=== PATIENT | female | born 1985 | race Caucasian/White ===

== ENCOUNTER 2018-09-17 10:28 | Day surgery (SDC) | payer OTHER ==
[2018-09-16 13:50] VITALS: BMI 22.7
[2018-09-17] MEDS ORDERED: Ondansetron PF 4 MG/2 ML Vial ONE (11:22)
[2018-09-17] MEDS ORDERED: Lidocaine 1% PF 5 ML VIAL ONE (11:22)
[2018-09-17] MEDS ORDERED: PROPOFOL 200 MG/20 ML VIAL ONE (11:22)
[2018-09-17] MEDS ORDERED: Fentanyl 100 MCG/2 ML VIAL ONE (12:34)
--- NOTE | 2018-09-18 00:05 | OP ---
DATE OF PROCEDURE: 09/17/2018 PROCEDURE PERFORMED: Esophagogastroduodenoscopy with biopsy. PREOPERATIVE DIAGNOSIS: A 33-year-old with chronic and persistent acid reflux. She has acid reflux everyday. She has taken Nexium 3 times a day. Surprisingly, she has no risk factors for acid reflux. She is on Lovaza. She is physically very fit and thin, she does not smoke and does not drink alcohol. She also eats very healthy. The patient complains of persistent heartburn over the last couple of years. No EGD. POSTOPERATIVE DIAGNOSES: 1. Normal vocal cords. No vocal cord inflammation or erythema seen. 2. Normal esophageal mucosa throughout the esophagus. No esophagitis or any erosions. 3. Normal stomach including fundus and cardia. No hiatus hernia seen. DESCRIPTION OF PROCEDURE: The patient was placed on her left lateral position and was given sedation by Anesthesia Department. A [employer] video gastroscope under direct vision passed down the oropharynx, past the GE junction into the stomach and subsequently into the descending duodenum. Although the patient complained of severe and persistent acid reflux, endoscopy in the vocal cords appeared very healthy. There was no inflammation or erythema seen. The esophageal mucosa appeared normal throughout. No mucosal hyperemia or erosions, or inflammation seen. She does not have hiatus hernia. In the GE junction, no pathology seen. Retroflexion failed to show any specific pathology in the fundus and cardia. In the gastric body, gastric antrum, no pathology seen. In the duodenal bulb, descending duodenum, no pathology seen. Biopsy obtained of the gastric antrum and gastric body. Also, biopsies of the distal esophagus. The stomach decompressed and the scope removed. DISCHARGE PLANNING: This is a 33-year-old with chronic acid reflux, came for EGD. She underwent EGD and no pathology seen in the stomach or the esophagus. The patient did well postprocedure and being discharged. DISCHARGE INSTRUCTIONS: 1. The patient was advised to call me should she develop any abdominal pain, hematemesis, or melena. 2. She will come back to clinic next week. We will plan for abdominal sonogram to rule out any gallstones. Job ID: [id number]
== END 2018-09-17 14:35 | disposition home or self-care (01) ==
LOC: SDC 10:28
PROVIDERS: ATTEND Internal Medicine Gastroenterology
PROC: 0DB78ZX Excision of Stomach, Pylorus, Via Natural or Artificial Opening Endoscopic, Diagnostic (ICD-10-PCS; principal; 2018-09-17)
PROC: 0DB38ZX Excision of Lower Esophagus, Via Natural or Artificial Opening Endoscopic, Diagnostic (ICD-10-PCS; principal; 2018-09-17)
DX: K29.50 Unspecified chronic gastritis without bleeding (principal); B96.81 Helicobacter pylori [H. pylori] as the cause of diseases classified elsewhere; K21.9 Gastro-esophageal reflux disease without esophagitis; I10 Essential (primary) hypertension; Z79.899 Other long term (current) drug therapy
CPT/HCPCS: 88305; 88312; 88313; J3010

== ENCOUNTER 2021-09-29 13:31 | Emergency (ER) | payer OTHER ==
[~2021-09-29 13:31] MED LIST: Iopamidol-370 76% 500 ML 1 ML ONE
[2021-09-29 14:15] LABS: #Eosinphils 0.1 thou/uL (0.0-0.7); #Monocytes 0.8 thou/uL (0.11-0.59); #Neutrophils 6.4 thou/uL (1.40-6.50); %Basophils 0.3 % (0.0-1.0); %Eosinophils 1.7 % (0.0-10.0); %Lymphocytes 12.1 % (21.0-51.0); %Neutrophils 76.9 % (42.0-75.0); Hemoglobin 8.5 g/dL (12.0-16.0); Mean Corpuscular HGB CONC 30.9 g/dL (32.0-36.0); Mean Corpuscular Hemoglobin 25.9 pg (27.0-31.0); Mean Platelet Volume 7.3 fL (7.4-10.4); Platelet Count 365 thou/uL (130-400); RBC Distribution Width 14.6 % (11.5-14.5); Red Blood Cell (RBC) Count 3.28 mill/uL (4.20-5.40); White Blood Cell (WBC) Count 8.4 thou/uL (4.8-10.8)
[2021-09-29 14:36] LABS: ALT (SGPT) 33 U/L (8-55); AST (SGOT) 34 U/L (5-34); Albumin 3.2 g/dL (3.5-5.0); Alkaline Phosphatase 93 U/L (40-110); Anion Gap 12 mmol/L (10-20); BUN (Urea Nitrogen) 6 mg/dL (7.0-18.7); Bilirubin, Total 0.2 mg/dL (0.2-1.2); Calc. Creatinine Clearance 0 mL/min (70-130); Calcium 8.6 mg/dL (7.8-10.44); Carbon Dioxide 24 mmol/L (22-29); Chloride 105 mmol/L (98-107); Globulin 2.7 g/dL (2.4-3.5); Glucose 99 mg/dL (70-105); Potassium 3.5 mmol/L (3.5-5.1); Protein, Total 5.9 g/dL (6.0-8.3); Sodium 137 mmol/L (136-145)
[2021-09-29 15:35] LABS: Bilirubin Negative (Negative); Blood, Urine Negative (Negative); Clarity Clear (Clear); Glucose, Urine (Dipstick) Normal (Negative); Ketone, Urine Negative (Negative); Leukocyte Negative Leu/uL (Negative); Nitrite Negative (Negative); Protein, Urine (Dipstick) Negative (Neg-Trace); Specific Gravity, Urine 1.004 (1.002-1.036); Urobilinogen Normal mg/dL (Less than 2)
[2021-09-29 15:36] LABS: Pregnancy Test - Urine (BHCG) Negative (Negative); Pregu Control Background? CLEAR/WHITE (CLR/WHITE); Pregu Control Bar Appear? YES (CONTROL BAR); Specific Gravity 1.004 (1.002-1.036)
[2021-09-29] MEDS ORDERED: Ketorolac Tromethamine 30 MG/ML VIAL ONE (17:30)
[2021-09-29] MEDS ORDERED: cefTRIAXone\\ROCEPHIN 1 GM VIAL ONE (17:32)
== END 2021-09-29 19:15 | disposition home or self-care (01) ==
LOC: ERS 13:31
DX: N10 Acute pyelonephritis (principal); Z79.899 Other long term (current) drug therapy
CPT/HCPCS: 36415; 74177; 80053; 81003; 81025; 83690; 85025; 87077; 87086; 96361; 96365; 96375; J0696; J1885; Q9967